=== PATIENT | female | born 1995 | race Two or more races ===

== ENCOUNTER 2017-05-28 01:19 | Emergency (ER) | payer MEDICAID ==
[~2017-05-28] VITALS: Ht 160 cm; Wt 63.5 kg
[2017-05-28 01:25] VITALS: BP 138/93
[2017-05-28] MEDS ORDERED: cefTRIAXone SOD 1,000 MG VL IM ONE (02:45)
[2017-05-28] MEDS ORDERED: IBUPROFEN 600 MG TAB PO ONE (02:45)
[2017-05-28] MEDS ORDERED: LIDOCAINE 2%HCL (LOCAL ANESTH.) INJ 20ML MDV ONE (02:50)
[2017-05-28] MEDS ORDERED: LIDOCAINE 1% HCL (LOCAL ANESTH.) INJ 20ML MDV ONE (02:51)
== END 2017-05-28 02:36 | disposition home or self-care (01) ==
LOC: ER 01:19
DX: N61.0 Mastitis without abscess (principal)
CPT/HCPCS: 96372; 99283; J0696; J2001